=== PATIENT | female | born 1955 | race Caucasian/White ===

== ENCOUNTER → 2023-01-08 11:05 | Outpatient (CLI) | payer MEDICARE, BC, SELFPAY ==
--- NOTE | 2023-01-08 11:05 | MR_ITS ---
FINAL REPORT CLINICAL HISTORY: Neck pain, N/T right upper extremity weakness FINDINGS: Multi planar MR imaging was obtained of the cervical spine. There is mild abnormal decreased signal throughout the cervical discs. The vertebrae are of normal height. There is no malalignment. The cervical cord demonstrates normal signal and configuration. C2-C3: There is no evidence of significant disc bulge or protrusion. There is no significant facet hypertrophy. C3-C4: There is no evidence of significant disc bulge or protrusion. There is no significant facet hypertrophy. C4-C5: There is no evidence of significant disc bulge or protrusion. There is no significant facet hypertrophy. C5-C6: Mild disc bulge with mild right neural foraminal narrowing. C6-C7: Mild disc bulge with mild right neural foraminal narrowing. C7-T1: There is no evidence of significant disc bulge or protrusion. There is no significant facet hypertrophy. IMPRESSION: Mild disc bulges with mild right neural foraminal narrowing at the C5-6 and C6-7 levels. Reviewed, Interpreted and Dictated by Sanchez Russo MD Transcribed by Yee Nieves Authenticated and [facility]
--- NOTE | 2023-01-08 12:10 | XR_ITS ---
FINAL REPORT CLINICAL HISTORY: Neck pain, right upper extremity N/T, weakness FINDINGS: Five views cervical spine plus flexion and extension views: There are small anterior osteophytes present at the C5-6 and C7 levels. No other significant bony abnormality is identified and no prevertebral swelling is present. There is no evidence of instability on flexion and extension views. IMPRESSION: Mild anterior osteophytes at the C5-6 and C6-7 levels. Reviewed, Interpreted and Dictated by Sanchez Russo MD Transcribed by Yee Nieves Authenticated and [facility]
[2023-01-08 12:24] LABS: Basophils # 0.1 K/mm3 (0-0.2); Basophils % 0.6 % (0.1-2.0); Eosinophils # 0.2 K/mm3 (0.0-0.4); Eosinophils % 2.5 % (0.1-12.0); Hematocrit 41.7 % (37.0-47.0); Hemoglobin 13.5 g/dL (12.2-16.2); Lymphocytes # 1.5 K/mm3 (0.7-4.5); Lymphocytes % 19.3 % (10-50); Mean Corpuscular HGB Conc 32.3 g/dL (31.8-35.4); Mean Corpuscular Hemoglobin 28.1 pg (27.0-31.2); Mean Corpuscular Volume 87.1 fl (81-99); Mean Platelet Volume 7.7 fl (7.4-10.4); Monocytes # 0.5 K/mm3 (0.1-1.0); Monocytes % 6.7 % (1.7-9.3); Neutrophils # 5.6 K/mm3 (1.8-7.8); Neutrophils % 70.9 % (37.0-80.0); Platelet Count 242 K/mm3 (142-424); Red Blood Count 4.79 M/mm3 (4.20-5.40); Red Cell Distribution Width 13.7 % (11.5-17.5)
[2023-01-08 12:58] LABS: Alanine Aminotransferase 21 U/L (12-78); Albumin Level 4.2 g/dl (3.5-5.0); Albumin/Globulin Ratio 1.8 (1.1-1.8); Alkaline Phosphatase 68 U/L (38-126); Anion Gap 16.3 mEq/L (5-15); Aspartate Amino Transferase 27 U/L (14-36); Bilirubin,Total 0.4 mg/dl (0.2-1.3); Blood Urea Nitrogen 16 mg/dl (7-17); Calcium 9.6 mg/dl (8.4-10.2); Carbon Dioxide 25 mmol/L (22.0-30.0); Chloride 106 mmol/L (98-107); Estimated Glomerular Filt Rate 124 ml/min (>60); GFR (African American) 150 ML/MIN (>60); Globulin 2.4 g/dL (1.3-3.2); Glucose 78 mg/dl (74-100); Magnesium 1.8 mg/dl (1.6-2.3); Potassium 4.3 mmoL/L (3.5-5.1); Sodium 143 mmol/L (136-145); Total Protein,Serum 6.6 g/dl (6.3-8.2)
[2023-01-08 13:23] LABS: Thyroid Stimulating Hormone 3.14 uIU/mL (0.465-4.68)
[2023-01-08 13:58] LABS: Vitamin B12 648 pg/mL (239-931)
[2023-02-05 23:45] LABS: Rheumatoid Factor IGM < 7 U (<7)
[2023-02-05 23:46] LABS: Antinuclear Antibodies, IFA Negative
== END ==
PROVIDERS: PCP Family Medicine; Visit Provider Nurse Practitioner Family
DX: F41.9 Anxiety disorder, unspecified (principal); M25.60 Stiffness of unspecified joint, not elsewhere classified; M54.2 Cervicalgia; R20.0 Anesthesia of skin; R20.2 Paresthesia of skin; R53.1 Weakness; M25.551 Pain in right hip; E89.2 Postprocedural hypoparathyroidism; Z96.611 Presence of right artificial shoulder joint; M54.50 Low back pain, unspecified
CPT/HCPCS: 36415; 72052; 72141; 76376; 80053; 82607; 82746; 83735; 84443; 85025; 86038; 86431

== ENCOUNTER → 2023-02-18 14:46 | Outpatient (CLI) | payer MEDICARE, BC, SELFPAY ==
[2023-02-18 15:21] LABS: Blood Urea Nitrogen 17 mg/dl (7-17); Estimated Glomerular Filt Rate 84 ml/min (>60); GFR (African American) 102 ML/MIN (>60)
--- NOTE | 2023-02-18 15:29 | MR_ITS ---
PROCEDURE INFORMATION: Exam: MR Right Upper Extremity Joint Without and With Contrast; Shoulder Exam date and time: 02/18/2023 4:04 PM Age: 67 years old Clinical indication: Pain; Prior surgery; Surgery date: 6+ months; Surgery type: Two SX on right shoulder; Additional info: Pain, abnormal ncv-emg TECHNIQUE: Imaging protocol: Magnetic resonance imaging of the right upper extremity without and with contrast. Exam focused on the shoulder. Contrast material: PROHANCE; Contrast volume: 14 ml; Contrast route: IV; COMPARISON: MR CERVICAL SPINE WO CON 01/08/2023 11:11 AM FINDINGS: Limitations: Surgical hardware artifact at the humeral head and dorsal to the distal clavicle which obscures evaluation of surrounding structures. Bones/joints: Unremarkable. No bone abnormalities. Articular cartilage normal. No joint effusion. Mild glenohumeral joint osteoarthritis. Glenoid labrum: Degeneration. No evidence of acute tear. Supraspinatus tendon: Postsurgical changes of repair. Not well visualized due to hardware artifact. Appears largely torn at its greater tuberosity attachment with approximately 2 cm of tendon retraction. Infraspinatus tendon: Not well-visualized due to hardware artifact. Grossly intact. Subscapularis tendon: Not well visualized due to hardware artifact. Grossly intact. Teres minor tendon: Unremarkable. No evidence of tear. Tendon of biceps brachii: Not well visualized due to hardware artifact. Grossly intact. Glenohumeral ligaments: Unremarkable. Soft tissues: Unremarkable. IMPRESSION: 1. Limited evaluation of the shoulder due to hardware artifact likely related to supraspinatus tendon tear. Supraspinatus tendon is not well visualized although appears largely torn at its greater tuberosity attachment with approximately 2 cm of tendon retraction. 2. Glenohumeral joint osteoarthritis with labral degeneration.
== END ==
PROVIDERS: PCP Family Medicine; Visit Provider Nurse Practitioner Family
DX: R20.0 Anesthesia of skin (principal); R20.2 Paresthesia of skin; R94.130 Abnormal response to nerve stimulation, unspecified; M25.511 Pain in right shoulder
CPT/HCPCS: 36415; 73223; 82565; 84520; A9576

== ENCOUNTER → 2023-02-21 17:13 | Outpatient (CLI) | payer MEDICARE, BC, SELFPAY ==
--- NOTE | 2023-02-21 17:13 | MR_ITS ---
PROCEDURE INFORMATION: Exam: MR Lumbar Spine Without Contrast Exam date and time: 02/21/2023 5:10 PM Age: 67 years old Clinical indication: Low back pain; Additional info: Paresthesia, abnormal ncv-emg, pain, . right leg pain x 3 years after a fall in 2019 TECHNIQUE: Imaging protocol: Magnetic resonance imaging of the lumbar spine without contrast. COMPARISON: No relevant prior studies available. FINDINGS: Bones/joints: There is preservation of vertebral alignment. There is preservation of vertebral body heights. No marrow replacing process. Spinal cord: Conus medullaris and cauda equina nerve roots are unremarkable L1-L2: No significant disc bulge or herniation. No severe spinal canal stenosis. No significant neural foraminal narrowing. L2-L3: No significant disc bulge or herniation. No severe spinal canal stenosis. No significant neural foraminal narrowing. L3-L4: No significant disc bulge or herniation. No severe spinal canal stenosis. No significant neural foraminal narrowing. L4-L5: No significant disc bulge or herniation. No severe spinal canal stenosis. No significant neural foraminal narrowing. L5-S1: No significant disc bulge or herniation. No severe spinal canal stenosis. No significant neural foraminal narrowing. Soft tissues: Unremarkable. IMPRESSION: No evidence of spinal canal stenosis or neural foraminal narrowing at any level.
== END ==
PROVIDERS: PCP Family Medicine; Visit Provider Nurse Practitioner Family
DX: M54.50 Low back pain, unspecified (principal); R20.0 Anesthesia of skin; R94.130 Abnormal response to nerve stimulation, unspecified
CPT/HCPCS: 72148; 76376

== ENCOUNTER 2023-09-29 12:13 | Outpatient (CLI) | payer MEDICARE, SELFPAY ==
--- NOTE | 2023-09-29 | ECG_ITS ---
APPROVED REPORT Exam: Resting ECG HR:60 bpm ECG Measurements Heart Rate 60 AXES RI 170 P 55 QRSd 80 QRS 28 QT 416 T 59 QTc 416 Conclusion SINUS RHYTHM LOW QRS VOLTAGE IN PRECORDIAL LEADS [QRS DEFLECTION < 1.0 mV IN CHEST LEADS] BORDERLINE ECG UNCONFIRMED REPORT Electronically signed by : Ab Miller MD 09/29/2023 18:12:21
--- NOTE | 2023-09-29 12:33 | XR_ITS ---
FINAL REPORT CLINICAL HISTORY: Shortness of breath, PRE DIABETIC..pre-op shoulder surgery COMPARISON: None FINDINGS: Two views of the chest were obtained. The heart size and pulmonary vascularity are within normal limits. The mediastinum is normal. No acute pulmonary abnormality is identified. There is no pneumothorax. The bony thorax is intact. There is postoperative change in the right humeral head. IMPRESSION: No active cardiopulmonary disease. Reviewed, Interpreted and Dictated by Crow Dumont III, MD Transcribed by Etelvina Easley Authenticated and [facility]
[2023-09-29 13:08] LABS: Basophils # 0.2 K/mm3 (0-0.2); Basophils % 2.2 % (0.1-2.0); Eosinophils # 0.2 K/mm3 (0.0-0.4); Eosinophils % 2.4 % (0.1-12.0); Hematocrit 43.3 % (37.0-47.0); Hemoglobin 14.1 g/dL (12.2-16.2); Lymphocytes # 2.1 K/mm3 (0.7-4.5); Lymphocytes % 26.2 % (10-50); Mean Corpuscular HGB Conc 32.6 g/dL (31.8-35.4); Mean Corpuscular Hemoglobin 29.8 pg (27.0-31.2); Mean Corpuscular Volume 91.6 fl (81-99); Mean Platelet Volume 7.9 fl (7.4-10.4); Monocytes # 0.7 K/mm3 (0.1-1.0); Monocytes % 8.7 % (1.7-9.3); Neutrophils # 4.9 K/mm3 (1.8-7.8); Neutrophils % 60.5 % (37.0-80.0); Platelet Count 232 K/mm3 (142-424); Red Blood Count 4.73 M/mm3 (4.20-5.40); Red Cell Distribution Width 13.5 % (11.5-17.5)
[2023-09-29 13:47] LABS: Anion Gap 12.1 mEq/L (5-15); Blood Urea Nitrogen 16 mg/dl (7-17); Calcium 9.7 mg/dl (8.4-10.2); Carbon Dioxide 26 mmol/L (22.0-30.0); Chloride 105 mmol/L (98-107); Estimated Glomerular Filt Rate 84 ml/min (>60); GFR (African American) 102 ML/MIN (>60); Glucose 95 mg/dl (74-100); Potassium 4.1 mmoL/L (3.5-5.1); Sodium 139 mmol/L (136-145)
[2023-09-29 13:59] LABS: Hemoglobin A1C 5.4 % (4.0-6.0)
== END 2023-09-29 23:59 ==
PROVIDERS: PCP Family Medicine; Visit Provider Orthopaedic Surgery Sports Medicine
DX: Z87.898 Personal history of other specified conditions (principal); R73.09 Other abnormal glucose; Z01.818 Encounter for other preprocedural examination
CPT/HCPCS: 36415; 71046; 80048; 83036; 85025; 93005

== ENCOUNTER 2024-12-09 13:00 | Outpatient (CLI) | payer MEDICARE, SELFPAY ==
--- NOTE | 2024-12-09 13:04 | MR_ITS ---
FINAL REPORT TECHNIQUE: Multiplanar MR without contrast CLINICAL HISTORY: LUMBAR SPONDYLOSIS W RADICULOPATHY fall in 2019, bilateral hip and leg pain with tingling FINDINGS: Sagittal images show normal vertebral height. Alignment is normal. Marrow signal pattern is unremarkable. T12-L1: Unremarkable. L1-2: Unremarkable L2-3: Unremarkable L3-4: Unremarkable. L4-5: Mild facet arthropathy. No focal disc protrusion. L5-S1: Moderate right facet arthropathy. Mild left facet arthropathy. IMPRESSION: No evidence of canal stenosis. Lower lumbar facet arthropathy. Reviewed, Interpreted and Dictated by Jaime Saucedo MD Transcribed by Kezia Mancera Authenticated and [facility]
== END 2024-12-09 23:59 | disposition home or self-care (01) ==
LOC: RAD 13:01
PROVIDERS: PCP Family Medicine; Visit Provider Physician Assistant Medical
DX: M47.26 Other spondylosis with radiculopathy, lumbar region (principal)
CPT/HCPCS: 72148